=== PATIENT | female | born 1990 | race Caucasian/White ===

== ENCOUNTER 2018-03-06 08:54 | Observation (INO) ==
[2018-03-06] MEDS ORDERED: Sod Chloride 0.9% Inj 2,000 ML IV.SIG ONE (09:10)
--- NOTE | 2018-03-06 09:48 | P.HPOB ---
History of Present Illness Primary Care Physician: No Primary Care Physician Chief Complaint: Abdominal pain History of Present Illness: Patient is 27-year-old white female who did not know she was until today presents with to [facility] with worsening abdominal pain. At that ER she had an ultrasound that showed empty uterus, fluid in the abdomen, her quantitative hCG was greater than 12,000. These factors all signify a ectopic with a free fluid and increased abdominal pain very likely ruptured ectopic with hemoperitoneum Weeks Gestation:: 6 Para: 0 : 1 Review of Systems All other systems reviewed negative except as stated in HPI PMFSH - History History Provided By: Patient - Medical History Medical History: Medical History (Last Reviewed 03/06/18 @ 05:13 by Oli Mckeon RN) Patient denies medical problems - Surgical History Surgical History: Surgical History (Last Updated 03/06/18 @ 05:13 by Oli Mckeon RN) No history of previous surgery - Tobacco History Second Hand Smoke Exposure: No Tobacco Use In Past 30 Days: No Smoking Status: Current some day smoker Tobacco Type: Cigarettes - Alcohol History How Often Do You Have a Drink Containing Alcohol: 2 to 4 times a month - Substance Use History Substance History: Active Abuse - Substance Use Type Marijuana Status: Active Route Used: Inhalation Last Used: weekly - Travel History Recent Travel in the [place] Within the Last 8 Weeks: No Recent Travel Out of the Country Within the Last 8 Weeks: No - Immunization History Tetanus Immunization: Unsure Medications and Allergies Active Medications: Active Medications Sodium Chloride (Ns Inj) 250 mls @ 15 mls/hr IV.SIG ONCE MAGALI Stop: 03/07/18 02:39 Allergies Allergy/AdvReac Type Severity Reaction Status Date / Time No Known Allergies Allergy Verified 03/06/18 05:10 Home Medications Medication Instructions Recorded Confirmed Type No Known Home Medications 03/06/18 03/06/18 History Exam Vital signs: Vital Signs 03/06/18 09:20 03/06/18 09:22 Temperature 98.8 F Pulse Rate 132 H 145 H Respiratory Rate 18 18 Blood Pressure 138/80 138/70 Pulse Oximetry 98 98 Intake & Output 03/05/18 03/06/18 03/06/18 18:59 06:59 18:59 Weight 49.895 kg Narrative: GENERAL: Well-nourished, well-developed patient. SKIN: Warm and dry. HEAD: Normocephalic and atraumatic. EYES: No scleral icterus. No injection or drainage. ENT: No nasal drainage noted. Mucous membranes pink. Airway patent. NECK: Supple, trachea midline. No JVD. CARDIOVASCULAR: Regular rate and rhythm without murmurs, gallops, or rubs. RESPIRATORY: Breath sounds equal bilaterally. No accessory muscle use. BREASTS: Bilateral exam showed no masses , no retractions, no nipple discharge. ABDOMEN/GI: Abdomen firm 1+ distention, 3+ tender, bowel sounds present, + rebound, +guarding Gravid to [-6] weeks size External Genitalia: intact and normal in appearance BUS glands: [-] Cervix: [-+ CMT] Uterus small severely tender tenderness on the adnexa with guarding impossible to really feel anything EXTREMITIES: No cyanosis or edema. BACK: Nontender without obvious deformity. No CVA tenderness. NEUROLOGICAL: Awake and alert. Motor and sensory grossly within normal limits. Five out of 5 muscle strength in all muscle groups. Normal speech. Results - Labs Labs: Laboratory Results - last 24 hr 03/06/18 09:14 MTS Gel Crossmatch See Detail Caprini VTE Risk Assessment Caprini VTE Risk Assessment: No/Low Risk (score <= 1) Caprini Risk Assessment Model: Point Value = 1 Point Value = 2 Point Value = 3 Point Value = 5 Age 41-60 Minor surgery BMI > 25 kg/m2 Swollen legs Varicose veins or History of unexplained or recurrent spontaneous Oral contraceptives or hormone replacement Sepsis (< 1 month) Serious lung disease, including pneumonia (< 1 month) Abnormal pulmonary function Acute myocardial infarction Congestive heart failure (< 1 month) History of inflammatory bowel disease Medical patient at bed rest Age 61-74 Arthroscopic surgery Major open surgery (> 45 min) Laparoscopic surgery (> 45 min) Malignancy Confined to bed (> 72 hours) Immobilizing plaster cast Central venous access Age >= 75 History of VTE Family history of VTE Factor V Leiden Prothrombin [id number] Lupus anticoagulant Anticardiolipin antibodies Elevated serum homocysteine Heparin-induced thrombocytopenia Other congenital or acquired thrombophilia Stroke (< 1 month) Elective arthroplasty Hip, pelvis, or leg fracture Acute spinal cord injury (< 1 month) Prophylaxis Regimen: Total Risk Factor Score Risk Level Prophylaxis Regimen 0-1 Low Early ambulation 2 Moderate Order ONE of the following: *Sequential Compression Device (SCD) *Heparin 5000 units SQ BID 3-4 Higher Order ONE of the following medications: *Heparin 5000 units SQ TID *Enoxaparin/Lovenox 40 mg SQ daily (WT < 150 kg, CrCl > 30 mL/min) *Enoxaparin/Lovenox 30 mg SQ daily (WT < 150 kg, CrCl > 10-29 mL/min) *Enoxaparin/Lovenox 30 mg SQ BID (WT < 150 kg, CrCl > 30 mL/min) AND/OR *Sequential Compression Device (SCD) 5 or more Highest Order ONE of the following medications: *Heparin 5000 units SQ TID (Preferred with Epidurals) *Enoxaparin/Lovenox 40 mg SQ daily (WT < 150 kg, CrCl > 30 mL/min) *Enoxaparin/Lovenox 30 mg SQ daily (WT < 150 kg, CrCl > 10-29 mL/min) *Enoxaparin/Lovenox 30 mg SQ BID (WT < 150 kg, CrCl > 30 mL/min) AND *Sequential Compression Device (SCD) Assessment and Plan - Diagnosis (1) Ruptured ectopic Code(s): O00.90 - Unspecified ectopic without intrauterine Status: Acute (2) Acute abdomen Code(s): R10.0 - Acute abdomen Status: Acute - Plan This paranasal ruptured ectopic and hemoperitoneum with all of findings pointing to that diagnosis. Plan for patient to have a exploratory laparoscopy possible laparotomy salpingectomy as needed for therapy
--- NOTE | 2018-03-06 09:59 | ED ---
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 This is a 27-year-old female who went to [place] on a complaining of abdominal pain. She did not know she was at the time. She is found to have a beta titer 12,000 and ultrasound negative for IUP. She is sent here for ruptured ectopic. She is critically ill on arrival. She is tachycardic at 150 and looks very pale. She is anemic. Symptoms are severe. No exacerbating factors. No alleviating factors. Duration 6 hours Review of Systems ROS: all other systems reviewed are negative PMFSH - Medical History Medical History Patient denies medical problems (Acute) Surgical History Surgical History No history of previous surgery (Acute) Social History Social History Substance History: Active Abuse Second Hand Smoke Exposure: No Smoking Status: Current some day smoker Tobacco Type: Cigarettes How Often Do You Have a Drink Containing Alcohol: 2 to 4 times a month [facility] within the Last 8 Weeks: No Recent Out of Country Travel within the Last 8 Weeks: No Exam Narrative Exam Narrative: GENERAL: Very pale appearing thin female with a lot of abdominal pain. SKIN: Focused skin assessment reveals no rash and nodules. Skin is Warm and dry. HEAD: Atraumatic. Normocephalic. EYES: Pupils equal and round. No scleral icterus. No injection or drainage. ENT: No nasal bleeding or discharge. Mucous membranes pink and moist. NECK: Trachea midline. No JVD. CARDIOVASCULAR: Regular rate and rhythm. No murmur appreciated. Tachycardic 150 RESPIRATORY: No accessory muscle use. Clear to auscultation. Breath sounds equal bilaterally. GASTROINTESTINAL: Abdomen is diffusely tender in all 4 quadrants without distention . Hepatic and splenic margins not palpable. MUSCULOSKELETAL: No obvious deformities. No clubbing. No cyanosis. No edema. NEUROLOGICAL: Awake and alert. No obvious cranial nerve deficits. Motor grossly within normal limits. Normal speech. PSYCHIATRIC: Appropriate mood and affect; insight and judgment normal. Course Initial Documented Vital Signs Temperature 98.8 F 03/06/18 09:20 Pulse Rate 132 H 03/06/18 09:20 Respiratory Rate 18 03/06/18 09:20 Blood Pressure 138/80 03/06/18 09:20 Pulse Oximetry 98 03/06/18 09:20 Last Documented Vital Signs Temperature 98.8 F 03/06/18 09:20 Pulse Rate 145 H 03/06/18 09:22 Respiratory Rate 18 03/06/18 09:22 Blood Pressure 138/70 03/06/18 09:22 Pulse Oximetry 98 03/06/18 09:22 Critical Care Time Critical Care Time: Yes Total Critical Care Time: 40 Attestation: Aggregate critical care time was 40 minutes. Time to perform other separately billable procedures was not included in the critical care time. My time did not include minutes spent treating any other patients simultaneously or on activities that did not directly contribute to the patient's treatment. The services I provided to this patient were to treat and/or prevent clinically significant deterioration that could result in: Cardiopulmonary arrest, hemorrhagic shock I provided critical care services requiring my management, as noted below: Chart data review, documentation time, medication orders and management, vital sign assessments/reviewing monitor data, ordering and reviewing lab tests, ordering and interpreting/reviewing x-rays and diagnostic studies, care of the patient and discussion of the patient with the admitting physicians. Medical Decision Making MDM Narrative Medical decision making narrative: This is a 27-year-old female with ruptured ectopic . She is critically ill and will require emergent operation. I have given her 2 L of saline IV bolus. I have ordered 2 units of blood to transfuse now and 2 units to be held. I have reviewed with Dr. Triana the OB hospitalist who is come down and seen her in the emergency room. I also discussed with Dr. Leach who is planning to take her emergently to the operating room. I reviewed the workup from [facility]. Multiple rechecks necessary. At this point her blood pressure is holding. sHe is going to the operating room now. Medical Screen Exam Complete: Yes Emergency Medical Condition: Yes Differential Diagnosis Differential Diagnosis: Ruptured ectopic, tubo-ovarian abscess, ruptured ovarian cyst Medical Records Medical records reviewed: Yes I reviewed the patient's medical records. Reviewed the records from [facility] from today Lab Data Lab results reviewed: Yes I reviewed the patient's lab results. Lab results narrative: CBC shows leukocytosis of 27,000 and hemoglobin of 9.4. Lactate is elevated Lab Results 03/06/18 Range/Units 09:14 Blood Type A Positive MTS Gel Crossmatch See Detail Imaging Data Attestation: I personally reviewed and interpreted this imaging study as follows : My impression: Ultrasound shows no IUP Discharge Plan Discharge Disposition Patient Disposition: 30 Still Patient Discharge Details Diagnosis: Ruptured ectopic Physicians Team ED Provider: Dimitrios Tirado Primary Care Provider: Primary Care Maria L Mccoy Rxs /Orders / Referrals /Forms Prescriptions: No Action No Known Home Medications RF: 0 Discharge Interventions Interventions: Vital Signs Last Done: 03/06/18 09:22 Status ED Status: With Doctor
[2018-03-06] MEDS ORDERED: Bupivacaine/Epinephrine Inj 0.25% 50 ML Vial ONE (10:00)
[2018-03-06] MEDS ORDERED: Sodium Chlor 0.9% Inj 250 ML IV.SIG SCH (10:00)
[2018-03-06] MEDS ORDERED: fentaNYL Citrate Inj 100 MCG/2 ML Ampul ONE (10:02)
[2018-03-06] MEDS ORDERED: Famotidine PF Inj 20 MG/2 ML Vial ONE (10:02)
[2018-03-06] MEDS ORDERED: Phenylephrine/NS 1000 MCG/10ML Syringe IV.PUSH ONE (10:15)
[2018-03-06] MEDS ORDERED: Lidocaine PF 1% Inj 5 ML Syringe OTHER ONE (10:15)
[2018-03-06] MEDS ORDERED: Succinylcholine Inj 100 MG/5 ML Syringe IV.PUSH ONE (10:15)
[2018-03-06] MEDS ORDERED: Ketamine Inj 50 MG/5 ML Syringe IV.PUSH ONE (10:17)
[2018-03-06] MEDS ORDERED: Albumin Human 5% Inj 250 ML IV.SIG ONE (10:17)
[2018-03-06] MEDS ORDERED: Sugammadex Inj 200 MG/2 ML Vial IV.PUSH ONE (11:14)
[2018-03-06] MEDS ORDERED: *Meperidine Inj 25 MG/ML Vial PERIprocedural Use ONLY ONE (11:43)
[2018-03-06] MEDS ORDERED: Ibuprofen 600 MG Tablet PO PRN ×3 (11:47→13:34)
--- NOTE | 2018-03-06 11:53 | P.OP ---
- Preoperative Diagnosis (1) Acute abdomen (2) Ruptured ectopic - Postoperative Diagnosis (1) Acute abdomen (2) Ruptured ectopic Date of procedure: 03/06/18 Procedure: laparoscopic left partial salpingectomy and pelvic lavage Anesthesia: MARIELLA Surgeon: Angeli Leach MD Entry Level Receptionist: Alexis Sanchez Estimated blood loss (mL): 2,000 IV fluids (mL): 3,000 Urine output (mL): 350 Pathology: other (left tube and ectopic)
[2018-03-06 12:08] LABS: Baso % (Auto) 0.1 % (0.0-2.0); Hematocrit 25.3 % (35.0-46.0); Hemoglobin 8.4 gm/dL (11.6-15.3); Lymph # (Auto) 0.7 th/mm3 (1.0-4.8); Lymph % (Auto) 3.8 % (9.0-44.0); Mean Corpuscular HGB Conc 33.2 % (32.0-36.0); Mean Corpuscular Hemoglobin 30.5 pg (27.0-34.0); Mono # (Auto) 0.8 th/mm3 (0.0-0.9); Mono % (Auto) 4.7 % (0.0-8.0); Neut # (Auto) 15.9 th/mm3 (1.8-7.7); Neut % (Auto) 91.4 % (16.0-70.0); Platelet Count 136 th/mm3 (150-450); Red Blood Count 2.75 mil/mm3 (4.00-5.30); Red Cell Distribution Width 14.5 % (11.6-17.2); White Blood Count 17.5 th/mm3 (4.0-11.0)
[2018-03-06] MEDS ORDERED: *morphine SULFATE 4 MG/ML PERIprocedure ONLY ONE (12:08)
[2018-03-06 12:23] LABS: INR 1.2 Ratio; Prothrombin Time 12.2 sec (9.8-11.6)
--- NOTE | 2018-03-06 12:23 | MP ---
cc: Angeli Leach MD DATE OF OPERATION: 03/06/2018 PREOPERATIVE DIAGNOSIS: Presumed ruptured right ectopic with hemoperitoneum and clinical shock. POSTOPERATIVE DIAGNOSES: Ampullary left ectopic, right corpus luteal cyst, hematoperitoneum. PROCEDURE PERFORMED: Laparoscopic left distal salpingectomy and pelvic lavage and examination under anesthesia. SURGEON: Angeli Leach MD PAINTING WORKER: Alexis Sanchez, third year medical student FINDINGS: The patient was seen in the emergency room with a persistent pulse of 160, pale skin pallor and poor skin turgor, nausea, vomiting and severe pain, unable to sit with legs straight. Imaging studies suggested active bleeding in the abdomen and a probable right ectopic. She was quickly consented and taken to the OR where she underwent laparoscopy. It became apparent, after removal of approximately 1206-3732 mL of fluid, that this was a left ampullary ectopic actively bleeding. It was quickly rendered hemostatic by transection of the left tube and the remainder of the case was removing clot and free blood from the abdomen. She tolerated the procedure well and her vital signs did normalized to 110s pulse rate, blood pressure over 60s diastolic. She received 2 units intraoperatively and her color remains very pale. She did have 350 mL of clear urine. She also received, I think, 3 liters of crystalloid. Sponge, instrument, and needle counts were correct. The ectopic and distal portion of left tube went to Pathology for permanent. She tolerated the procedure well and went to the recovery room stable. DESCRIPTION OF PROCEDURE: The patient was quickly taken to the operating room and placed under general endotracheal anesthesia in the dorsal lithotomy position. She received 1 gram Ancef preincision. She had a Rush catheter placed. She had sequentials on. A timeout was performed with all in attendance. After assuring adequate positioning, examination under anesthesia was performed. The cervix was grasped with a single-tooth tenaculum and an acorn tenaculum placed in the cervical os. Attention was directed to the abdomen. A 5 mm incision was made in the umbilicus after instillation of lidocaine with epinephrine and then a 5 mm trocar and sleeve were placed. Pneumoperitoneum was instilled. The hemoperitoneum was noted. A 12 mm port was placed in the left lower quadrant and a 5 mm port was placed in the right quadrant with care to avoid underlying structures. Both incisions were transilluminated and she received lidocaine in both areas. After instrumentation was in place, the large suction brush finisher was used to remove clot and free blood and the active bleeding was identified and the Harmonic scalpel used to cut the tube on the left side in the mid portion and remove it from the tubo-ovarian ligament. It was then placed in the anterior cul-de-sac. An EndoCatch was placed. It was placed in the bag and removed. The next 20-30 minutes were spent with pelvic lavage removing significant clot from the entire abdomen, focusing in the upper right and left quadrants to avoid postoperative pain. Systematic evaluation of the abdominal and pelvic contents revealed that she had a normal liver edge, gallbladder, the uterus was of normal size. The left tube was normal up to the point of the ectopic. The left ovary remained and is normal. The right tube and ovary are normal anatomy and did not look in any way infected or scarred. There was no obvious endometriosis, infection, or other iatrogenic injury. ESTIMATED BLOOD LOSS: [id number]. COUNTS: Sponge, instrument and needle counts were correct. POSTOPERATIVE PLAN: She will possibly receive another unit or two of blood in recovery if clinically indicated. She will stay overnight and be discharged in the morning. MD DEEPTI Infante/jammie , 11:43 AM , 11:51 AM
[2018-03-06 12:35] LABS: Anion Gap 11 meq/L (5-15); Blood Urea Nitrogen 6 mg/dL (7-18); Calcium 5.7 mg/dL (8.5-10.1); Carbon Dioxide 18.5 meq/L (21.0-32.0); Chloride 115 meq/L (98-107); Glomerular Filtration Rate Greater Than 89 mL/min (>89); Glucose,Random 130 mg/dL (74-106); Potassium 4.5 meq/L (3.5-5.1); Sodium 144 meq/L (136-145)
[2018-03-06] MEDS: HYDROmorphone PF Inj 1 MG/ML Ampul IV.PUSH PRN ×2 (12:44→16:45)
[2018-03-06 13:05] LABS: Total Protein 4.6 g/dL (6.4-8.2)
[2018-03-06 20:16] LABS: Hematocrit 23.8 % (35.0-46.0); Hemoglobin 8.2 gm/dL (11.6-15.3)
[2018-03-06] MEDS ORDERED: Zolpidem Tartrate 5 MG Tablet PO PRN (21:00)
[2018-03-07] MEDS ORDERED: Iron Sucrose Inj 200 MG in Sodium Chlor 0.9% Inj 100 ML IV.SIG ONE (05:00)
[2018-03-07 06:04] LABS: Baso # (Auto) 0.1 th/mm3 (0.0-0.2); Baso % (Auto) 0.3 % (0.0-2.0); Eos % (Auto) 0.1 % (0.0-4.0); Hematocrit 21.7 % (35.0-46.0); Hemoglobin 7.5 gm/dL (11.6-15.3); Lymph # (Auto) 2.7 th/mm3 (1.0-4.8); Lymph % (Auto) 15.8 % (9.0-44.0); Mean Corpuscular HGB Conc 34.6 % (32.0-36.0); Mean Corpuscular Hemoglobin 30.1 pg (27.0-34.0); Mean Corpuscular Volume 86.8 fL (80.0-100.0); Mean Platelet Volume 8.2 fL (7.0-11.0); Mono # (Auto) 1.5 th/mm3 (0.0-0.9); Mono % (Auto) 8.5 % (0.0-8.0); Neut # (Auto) 12.9 th/mm3 (1.8-7.7); Neut % (Auto) 75.3 % (16.0-70.0); Platelet Count 171 th/mm3 (150-450); Red Blood Count 2.51 mil/mm3 (4.00-5.30); White Blood Count 17.2 th/mm3 (4.0-11.0)
[2018-03-07 06:27] LABS: Anion Gap 6 meq/L (5-15); Blood Urea Nitrogen 4 mg/dL (7-18); Calcium 7.5 mg/dL (8.5-10.1); Carbon Dioxide 27.6 meq/L (21.0-32.0); Chloride 109 meq/L (98-107); Glomerular Filtration Rate Greater Than 89 mL/min (>89); Glucose,Random 89 mg/dL (74-106); Potassium 3.3 meq/L (3.5-5.1); Sodium 143 meq/L (136-145)
[2018-03-07 08:15] VITALS: BP 116/60; PULSE 90; RESP 16; TEMP 98.3; O2SAT 100
== END 2018-03-07 12:05 | disposition home or self-care (01) ==
LOC: NEPC 08:54 → NEDA 10:00 → INTOOBSV 10:00 → NEPC 10:10 → N07 12:33 → H1EA 13:03
PROVIDERS: ADMIT Obstetrics & Gynecology; ATTEND Obstetrics & Gynecology
PROC: LAPSCPY (ICD-10-PCS; 2018-03-06 10:15)
DX: N83.11 Corpus luteum cyst of right ovary; D64.9 Anemia, unspecified; F17.210 Nicotine dependence, cigarettes, uncomplicated; O00.90 Unspecified ectopic pregnancy without intrauterine pregnancy; R10.0 Acute abdomen; R00.0 Tachycardia, unspecified; K66.1 Hemoperitoneum